=== PATIENT | female | born 1945 | race Caucasian/White ===

== ENCOUNTER 2021-11-12 17:31 | Inpatient (IN) | payer OTHER ==
[2021-11-12] MEDS ORDERED: ALBUTEROL SO4 2.5/IPRATROPIUM 0.5 INH SOL 3 ML VIAL.NEB. NEB ONE ×2 (18:11→18:26)
[2021-11-12 18:53] LABS: HEMATOCRIT 40.1 % (32.4-45.2); HEMOGLOBIN 14.1 G/dL (10.7-15.3); MCHC 35.1 g/dl (32.0-36.0); MEAN PLT VOLUME 8.4 fl (7.5-11.1); PLATELET COUNT 225.3 10^3/uL (134-434); RBC 4.41 10^6/uL (3.60-5.2); WHITE BLOOD COUNT 8.4 10^3/uL (4.0-10.8)
[2021-11-12 18:58] LABS: ALBUMIN 3.7 g/dl (3.4-5.0); BILIRUBIN,TOTAL 1.2 mg/dl (0.2-1); CALCIUM 9.5 mg/dl (8.5-10); CREATININE 0.9 mg/dl (0.55-1.3); TOT PROT 6.7 g/dl (6.4-8.2)
[2021-11-12] MEDS ORDERED: CEFTRIAXONE 1,000 MG in DEXTROSE 5%-WATER - 50 ML IVPB ONE (19:01)
[2021-11-12] MEDS ORDERED: AZITHROMYCIN IVPB 500 MG in DEXTROSE 5%-WATER - 250 ML IVPB ONE (19:02)
[2021-11-12] MEDS ORDERED: cefTRIAXone SODIUM 1 GM VIAL ONE ×2 (19:22)
[2021-11-12] MEDS ORDERED: AZITHROMYCIN 500 MG VIAL IVPB ONE (19:22)
[2021-11-13 03:25] VITALS: BMI 30.1
[2021-11-13] MEDS: LEVOTHYROXINE NA 100 MCG TABLET (FP) PO SCH (06:35)
[2021-11-13 07:35] LABS: HEMATOCRIT 37.4 % (32.4-45.2); HEMOGLOBIN 12.8 G/dL (10.7-15.3); MCHC 34.1 g/dl (32.0-36.0); MEAN CELL VOLUME 90.8 fl (80-96); MEAN PLT VOLUME 7.9 fl (7.5-11.1); PLATELET COUNT 182.5 10^3/uL (134-434); RBC 4.12 10^6/uL (3.60-5.2); RDW 13.8 % (11.6-15.6); WHITE BLOOD COUNT 7.1 10^3/uL (4.0-10.8)
[2021-11-13 07:40] LABS: CREATININE 0.8 mg/dl (0.55-1.3)
[2021-11-13] MEDS ORDERED: POTASSIUM CHLORIDE TABS 20 MEQ TABLET.ER (FP) PO ONE (08:30)
[2021-11-13] MEDS ORDERED: cefTRIAXone SODIUM 1 GM VIAL ONE (09:35)
[2021-11-13] MEDS ORDERED: DEXTROSE 5%-WATER - 50 ML IVPB ONE (09:36)
[2021-11-13] MEDS: AZITHROMYCIN IVPB 500 MG/250 ML BAG IVPB SCH (09:54)
[2021-11-13] MEDS: CEFTRIAXONE 1 GM in DEXTROSE 5%-WATER - 50 ML IVPB SCH (09:54)
[2021-11-13] MEDS ORDERED: amLODIPine BESYLATE 5 MG TABLET (FP) PO SCH (10:00)
[2021-11-13] MEDS ORDERED: HEPARIN NA (PORCINE) 5,000 UNITS/ML 1ML VIAL SQ SCH (10:00)
[2021-11-13] MEDS: amLODIPine BESYLATE 5 MG TABLET (FP) PO SCH (10:05)
[2021-11-13] MEDS: metoPROLOL SUCCINATE 25 MG TAB.SR.24H (FP) PO SCH (10:05)
[2021-11-13] MEDS: ACETAMINOPHEN 325 MG TABLET (FP) PO PRN (14:31)
[2021-11-13] MEDS: RIVAROXABAN 15 MG TABLET PO SCH (17:30)
[2021-11-13] MEDS: ATORVASTATIN CA 10 MG TABLET (FP) PO SCH (22:18)
[2021-11-14] MEDS: LEVOTHYROXINE NA 100 MCG TABLET (FP) PO SCH (06:27)
[2021-11-14] MEDS ORDERED: cefTRIAXone SODIUM 1 GM VIAL ONE (09:00)
[2021-11-14] MEDS ORDERED: DEXTROSE 5%-WATER - 50 ML IVPB ONE (09:01)
[2021-11-14] MEDS: amLODIPine BESYLATE 5 MG TABLET (FP) PO SCH (09:11)
[2021-11-14] MEDS: metoPROLOL SUCCINATE 25 MG TAB.SR.24H (FP) PO SCH (09:11)
[2021-11-14] MEDS: CEFTRIAXONE 1 GM in DEXTROSE 5%-WATER - 50 ML IVPB SCH (09:12)
[2021-11-14] MEDS: AZITHROMYCIN IVPB 500 MG/250 ML BAG IVPB SCH (09:12)
[2021-11-14] MEDS ORDERED: POTASSIUM CHLORIDE TABS 20 MEQ TABLET.ER (FP) PO ONE (10:17)
[2021-11-14] MEDS: METOPROLOL TARTRATE 5 MG/5 ML VIAL IVPUSH PRN ×2 (10:31→15:00)
[2021-11-14] MEDS ORDERED: METOPROLOL TARTRATE 25 MG TABLET (FP) PO ONE (12:30)
[2021-11-14] MEDS ORDERED: metoPROLOL SUCCINATE 25 MG TAB.SR.24H (FP) PO ONE (14:52)
[2021-11-14] MEDS ORDERED: metoPROLOL SUCCINATE 25 MG TAB.SR.24H (FP) PO SCH (15:00)
[2021-11-14] MEDS: RIVAROXABAN 15 MG TABLET PO SCH (17:39)
[2021-11-14] MEDS: ALBUTEROL SO4 2.5/IPRATROPIUM 0.5 INH SOL 3 ML VIAL.NEB. NEB PRN (20:42)
[2021-11-15 08:06] LABS: HEMATOCRIT 37.3 % (32.4-45.2); HEMOGLOBIN 13.1 G/dL (10.7-15.3); MCH 32.2 pg (25.7-33.7); MCHC 35.2 g/dl (32.0-36.0); MEAN CELL VOLUME 91.5 fl (80-96); PLATELET COUNT 165.3 10^3/uL (134-434); RBC 4.08 10^6/uL (3.60-5.2); RDW 14.2 % (11.6-15.6); WHITE BLOOD COUNT 9.7 10^3/uL (4.0-10.8)
[2021-11-15 08:15] LABS: ALBUMIN 3.2 g/dl (3.4-5.0); BILIRUBIN,TOTAL 1.2 mg/dl (0.2-1); CALCIUM 8.6 mg/dl (8.5-10); CREATININE 0.9 mg/dl (0.55-1.3); TOT PROT 6.2 g/dl (6.4-8.2)
[2021-11-15] MEDS ORDERED: cefTRIAXone SODIUM 1 GM VIAL ONE (09:29)
[2021-11-15] MEDS ORDERED: DEXTROSE 5%-WATER - 50 ML IVPB ONE (09:29)
[2021-11-15] MEDS: LEVOTHYROXINE NA 100 MCG TABLET (FP) PO SCH (09:39)
[2021-11-15] MEDS: amLODIPine BESYLATE 5 MG TABLET (FP) PO SCH (09:39)
[2021-11-15] MEDS: CEFTRIAXONE 1 GM in DEXTROSE 5%-WATER - 50 ML IVPB SCH (09:40)
[2021-11-15] MEDS: AZITHROMYCIN IVPB 500 MG/250 ML BAG IVPB SCH (09:40)
[2021-11-15] MEDS ORDERED: POTASSIUM CHLORIDE TABS 20 MEQ TABLET.ER (FP) PO ONE (09:57)
[2021-11-15] MEDS ORDERED: metoPROLOL SUCCINATE 25 MG TAB.SR.24H (FP) PO ONE (11:32)
[2021-11-15] MEDS: guaiFENesin 200 MG/10 ML 10 ML UNIT-DOSE CUPS PO PRN ×2 (12:34→21:51)
[2021-11-15] MEDS: ALBUTEROL SO4 2.5/IPRATROPIUM 0.5 INH SOL 3 ML VIAL.NEB. NEB PRN (12:37)
[2021-11-15] MEDS: RIVAROXABAN 15 MG TABLET PO SCH (18:23)
[2021-11-15] MEDS: ATORVASTATIN CA 10 MG TABLET (FP) PO SCH (21:50)
[2021-11-16] MEDS: ACETAMINOPHEN 325 MG TABLET (FP) PO PRN ×2 (00:53→10:36)
[2021-11-16] MEDS: LEVOTHYROXINE NA 100 MCG TABLET (FP) PO SCH (07:02)
[2021-11-16 08:31] LABS: HEMATOCRIT 36.6 % (32.4-45.2); HEMOGLOBIN 12.5 G/dL (10.7-15.3); MCH 31.6 pg (25.7-33.7); MCHC 34.2 g/dl (32.0-36.0); MEAN CELL VOLUME 92.4 fl (80-96); MEAN PLT VOLUME 8.6 fl (7.5-11.1); PLATELET COUNT 169.3 10^3/uL (134-434); RBC 3.96 10^6/uL (3.60-5.2)
[2021-11-16 09:00] LABS: ALBUMIN 2.9 g/dl (3.4-5.0); CALCIUM 8.9 mg/dl (8.5-10); CREATININE 0.8 mg/dl (0.55-1.3); MAGNESIUM 2.1 mg/dL (1.8-2.4); TOT PROT 5.9 g/dl (6.4-8.2)
[2021-11-16] MEDS ORDERED: metoPROLOL SUCCINATE 25 MG TAB.SR.24H (FP) PO SCH (10:00)
[2021-11-16] MEDS ORDERED: cefTRIAXone SODIUM 1 GM VIAL ONE (10:28)
[2021-11-16] MEDS ORDERED: DEXTROSE 5%-WATER - 50 ML IVPB ONE (10:28)
[2021-11-16] MEDS: CEFTRIAXONE 1 GM in DEXTROSE 5%-WATER - 50 ML IVPB SCH (10:35)
[2021-11-16] MEDS: AZITHROMYCIN IVPB 500 MG/250 ML BAG IVPB SCH (10:35)
[2021-11-16] MEDS: amLODIPine BESYLATE 5 MG TABLET (FP) PO SCH (10:36)
[2021-11-16] MEDS: predniSONE 20 MG TABLET (UD) PO SCH (10:38)
[2021-11-16] MEDS ORDERED: DOCUSATE SODIUM 100 MG CAPSULE (FP) PO PRN (10:43)
[2021-11-16] MEDS ORDERED: SENNOSIDES 8.6MG TABLET (FP) PO PRN (10:43)
[2021-11-16] MEDS: ALBUTEROL SO4 2.5/IPRATROPIUM 0.5 INH SOL 3 ML VIAL.NEB. NEB PRN (10:45)
[2021-11-16] MEDS: ALBUTEROL SO4 2.5/IPRATROPIUM 0.5 INH SOL 3 ML VIAL.NEB. NEB SCH ×4 (11:54→22:02)
[2021-11-16] MEDS: POLYETHYLENE GLYCOL (HEALTHYLAX) 3350 17 GM PACKET PO SCH (13:21)
[2021-11-16] MEDS: FAMOTIDINE 20 MG TABLET PO SCH (13:21)
[2021-11-16] MEDS: RIVAROXABAN 15 MG TABLET PO SCH (18:02)
[2021-11-16 19:31] LABS: EPITHELIAL CELLS RARE /hpf
[2021-11-16] MEDS: ATORVASTATIN CA 10 MG TABLET (FP) PO SCH (21:55)
[2021-11-16] MEDS: guaiFENesin 200 MG/10 ML 10 ML UNIT-DOSE CUPS PO PRN (22:34)
[2021-11-17] MEDS: guaiFENesin 200 MG/10 ML 10 ML UNIT-DOSE CUPS PO PRN (06:53)
[2021-11-17] MEDS: LEVOTHYROXINE NA 100 MCG TABLET (FP) PO SCH (06:53)
[2021-11-17] MEDS: ALBUTEROL SO4 2.5/IPRATROPIUM 0.5 INH SOL 3 ML VIAL.NEB. NEB SCH ×4 (07:16→21:35)
[2021-11-17] MEDS ORDERED: DEXTROSE 5%-WATER - 50 ML IVPB ONE (09:36)
[2021-11-17] MEDS ORDERED: cefTRIAXone SODIUM 1 GM VIAL ONE (09:36)
[2021-11-17] MEDS: FAMOTIDINE 20 MG TABLET PO SCH (09:45)
[2021-11-17] MEDS: predniSONE 20 MG TABLET (UD) PO SCH (09:45)
[2021-11-17] MEDS: amLODIPine BESYLATE 5 MG TABLET (FP) PO SCH (09:45)
[2021-11-17] MEDS: AZITHROMYCIN IVPB 500 MG/250 ML BAG IVPB SCH (09:46)
[2021-11-17] MEDS: CEFTRIAXONE 1 GM in DEXTROSE 5%-WATER - 50 ML IVPB SCH (09:46)
[2021-11-17] MEDS: POLYETHYLENE GLYCOL (HEALTHYLAX) 3350 17 GM PACKET PO SCH (09:46)
[2021-11-17 10:02] LABS: HEMATOCRIT 36.2 % (32.4-45.2); HEMOGLOBIN 12.2 G/dL (10.7-15.3); MCH 30.8 pg (25.7-33.7); MCHC 33.6 g/dl (32.0-36.0); MEAN CELL VOLUME 91.8 fl (80-96); MEAN PLT VOLUME 8.8 fl (7.5-11.1); PLATELET COUNT 213.7 10^3/uL (134-434); RBC 3.94 10^6/uL (3.60-5.2); RDW 14.3 % (11.6-15.6); WHITE BLOOD COUNT 11.9 10^3/uL (4.0-10.8)
[2021-11-17 10:30] LABS: ALBUMIN 3.1 g/dl (3.4-5.0); BILIRUBIN,TOTAL 0.7 mg/dl (0.2-1); CALCIUM 8.8 mg/dl (8.5-10); CREATININE 0.8 mg/dl (0.55-1.3); MAGNESIUM 1.9 mg/dL (1.8-2.4)
[2021-11-17] MEDS: guaiFENesin/CODEINE 10 ML UNIT-DOSE CUPS PO PRN (18:34)
[2021-11-17] MEDS: RIVAROXABAN 20 MG TABLET PO SCH (18:34)
[2021-11-17] MEDS: ATORVASTATIN CA 10 MG TABLET (FP) PO SCH ×2 (19:15→21:36)
[2021-11-17] MEDS: guaiFENesin/CODEINE 10 ML UNIT-DOSE CUPS PO SCH (21:34)
[2021-11-17] MEDS: metroNIDAZOLE 250 MG TABLET PO SCH (21:35)
[2021-11-17] MEDS ORDERED: traZODone HCL 50 MG TABLET (FP) PO SCH (22:00)
[2021-11-18] MEDS: guaiFENesin/CODEINE 10 ML UNIT-DOSE CUPS PO PRN ×2 (01:54→08:16)
[2021-11-18] MEDS: LEVOTHYROXINE NA 100 MCG TABLET (FP) PO SCH (06:38)
[2021-11-18] MEDS: metroNIDAZOLE 250 MG TABLET PO SCH (06:39)
[2021-11-18] MEDS: LEVALBUTEROL HCL 0.63 MG/3 ML VIAL.NEB. IH PRN (08:21)
[2021-11-18] MEDS ORDERED: methylPREDNISolone NA SUCC 125 MG/2 ML VIAL IVPUSH ONE (08:55)
[2021-11-18] MEDS ORDERED: DEXTROSE 5%-WATER - 50 ML IVPB ONE ×4 (09:10→23:47)
[2021-11-18] MEDS ORDERED: cefTRIAXone SODIUM 1 GM VIAL ONE (09:10)
[2021-11-18] MEDS: amLODIPine BESYLATE 5 MG TABLET (FP) PO SCH (09:25)
[2021-11-18] MEDS: predniSONE 20 MG TABLET (UD) PO SCH (09:25)
[2021-11-18] MEDS: FAMOTIDINE 20 MG TABLET PO SCH (09:25)
[2021-11-18] MEDS: POLYETHYLENE GLYCOL (HEALTHYLAX) 3350 17 GM PACKET PO SCH (09:26)
[2021-11-18] MEDS: CEFTRIAXONE 1 GM in DEXTROSE 5%-WATER - 50 ML IVPB SCH (09:26)
[2021-11-18 09:39] LABS: MCH 31.3 pg (25.7-33.7); MCHC 33.4 g/dl (32.0-36.0); MEAN CELL VOLUME 93.7 fl (80-96); MEAN PLT VOLUME 8.5 fl (7.5-11.1); PLATELET COUNT 221.3 10^3/uL (134-434); RBC 3.84 10^6/uL (3.60-5.2); RDW 14.8 % (11.6-15.6)
[2021-11-18] MEDS ORDERED: AZITHROMYCIN IVPB 500 MG/250 ML BAG IVPB SCH (10:00)
[2021-11-18 10:30] LABS: CREATININE 0.9 mg/dL (0.55-1.3)
[2021-11-18 10:32] LABS: ALBUMIN 2.7 g/dl (3.4-5.0); BLOOD UREA NITROGEN 16.3 mg/dL (7-18)
[2021-11-18 10:33] LABS: BILIRUBIN,TOTAL 0.5 mg/dL (0.2-1)
[2021-11-18 10:34] LABS: CALCIUM 8.5 mg/dL (8.5-10.1)
[2021-11-18 10:35] LABS: MAGNESIUM 2.3 mg/dL (1.8-2.4); PHOSPHOROUS 3.6 mg/dL (2.5-4.9)
[2021-11-18] MEDS ORDERED: PIPERACILLIN/TAZOB 3.375 GM 3.375 GM in DEXTROSE 5%-WATER - 50 ML IVPB SCH (12:15)
[2021-11-18] MEDS ORDERED: PIPERACILLIN/TAZOBACTAM 3.375 GM VIAL IVPB ONE ×3 (12:57→23:46)
[2021-11-18] MEDS: PIPERACILLIN/TAZOB 3.375 GM 3.375 GM in DEXTROSE 5%-WATER - 50 ML IVPB SCH ×2 (13:00→17:16)
[2021-11-18] MEDS: METOPROLOL TARTRATE 5 MG/5 ML VIAL IVPUSH PRN (14:12)
[2021-11-18 16:02] LABS: PLATELET ESTIMATE ADEQUATE
[2021-11-18] MEDS: RIVAROXABAN 20 MG TABLET PO SCH (17:17)
[2021-11-18] MEDS: ATORVASTATIN CA 10 MG TABLET (FP) PO SCH (22:03)
[2021-11-18] MEDS: guaiFENesin/CODEINE 10 ML UNIT-DOSE CUPS PO SCH (22:03)
[2021-11-19] MEDS: PIPERACILLIN/TAZOB 3.375 GM 3.375 GM in DEXTROSE 5%-WATER - 50 ML IVPB SCH ×3 (01:35→17:23)
[2021-11-19] MEDS: guaiFENesin/CODEINE 10 ML UNIT-DOSE CUPS PO PRN ×2 (05:00→23:49)
[2021-11-19] MEDS: LEVOTHYROXINE NA 100 MCG TABLET (FP) PO SCH (06:18)
[2021-11-19] MEDS ORDERED: PIPERACILLIN/TAZOBACTAM 3.375 GM VIAL IVPB ONE ×2 (09:09→17:00)
[2021-11-19] MEDS ORDERED: DEXTROSE 5%-WATER - 50 ML IVPB ONE ×2 (09:10→17:01)
[2021-11-19] MEDS: FAMOTIDINE 20 MG TABLET PO SCH (09:31)
[2021-11-19] MEDS: dilTIAZem HCL 30 MG TABLET PO SCH ×2 (09:31→21:12)
[2021-11-19] MEDS: predniSONE 20 MG TABLET (UD) PO SCH (09:31)
[2021-11-19] MEDS: POLYETHYLENE GLYCOL (HEALTHYLAX) 3350 17 GM PACKET PO SCH (10:18)
[2021-11-19] MEDS: RIVAROXABAN 20 MG TABLET PO SCH (17:24)
[2021-11-19] MEDS: ATORVASTATIN CA 10 MG TABLET (FP) PO SCH (21:12)
[2021-11-19] MEDS: guaiFENesin/CODEINE 10 ML UNIT-DOSE CUPS PO SCH (21:12)
[2021-11-20] MEDS ORDERED: DEXTROSE 5%-WATER - 50 ML IVPB ONE ×2 (01:33→09:29)
[2021-11-20] MEDS ORDERED: PIPERACILLIN/TAZOBACTAM 3.375 GM VIAL IVPB ONE ×2 (01:33→09:29)
[2021-11-20] MEDS: PIPERACILLIN/TAZOB 3.375 GM 3.375 GM in DEXTROSE 5%-WATER - 50 ML IVPB SCH ×2 (01:58→09:47)
[2021-11-20] MEDS: LEVALBUTEROL HCL 0.63 MG/3 ML VIAL.NEB. IH PRN (03:13)
[2021-11-20] MEDS: LEVOTHYROXINE NA 100 MCG TABLET (FP) PO SCH (06:20)
[2021-11-20 09:36] LABS: ALBUMIN 2.6 g/dl (3.4-5.0); BILIRUBIN,TOTAL 0.5 mg/dl (0.2-1); CALCIUM 8.5 mg/dl (8.5-10); CREATININE 0.9 mg/dl (0.55-1.3); TOT PROT 5.3 g/dl (6.4-8.2)
[2021-11-20 09:41] LABS: BASO % 0.2 % (0-2.0); EOS % 0.6 % (0-4.5); HEMATOCRIT 35.2 % (32.4-45.2); HEMOGLOBIN 11.7 GM/dL (10.7-15.3); LYMPH % 14.2 % (8-40); MCH 30.4 pg (25.7-33.7); MCHC 33.2 g/dl (32.0-36.0); MEAN CELL VOLUME 91.8 fl (80-96); MEAN PLT VOLUME 8.3 fl (7.5-11.1); PLATELET COUNT 280 10^3/uL (134-434); RBC 3.84 M/mm3 (3.60-5.2); RDW 13.6 % (11.6-15.6); WHITE BLOOD COUNT 10.6 K/mm3 (4.0-10.0)
[2021-11-20] MEDS: dilTIAZem HCL 30 MG TABLET PO SCH ×2 (09:46→21:30)
[2021-11-20] MEDS: predniSONE 20 MG TABLET (UD) PO SCH (09:47)
[2021-11-20] MEDS: FAMOTIDINE 20 MG TABLET PO SCH (09:47)
[2021-11-20] MEDS: POLYETHYLENE GLYCOL (HEALTHYLAX) 3350 17 GM PACKET PO SCH (11:26)
[2021-11-20] MEDS: methylPREDNISolone NA SUCC 40 MG/1 ML VIAL IVPUSH SCH ×2 (11:33→17:42)
[2021-11-20] MEDS: RIVAROXABAN 20 MG TABLET PO SCH (17:42)
[2021-11-20] MEDS: ATORVASTATIN CA 10 MG TABLET (FP) PO SCH (21:30)
[2021-11-20] MEDS: guaiFENesin/CODEINE 10 ML UNIT-DOSE CUPS PO SCH (21:31)
[2021-11-21] MEDS: methylPREDNISolone NA SUCC 40 MG/1 ML VIAL IVPUSH SCH ×3 (01:31→17:15)
[2021-11-21] MEDS: LEVOTHYROXINE NA 100 MCG TABLET (FP) PO SCH (06:12)
[2021-11-21 08:38] LABS: N-TERMINAL BNP 5833.2 pg/ml (5-450)
[2021-11-21] MEDS: FAMOTIDINE 20 MG TABLET PO SCH (09:29)
[2021-11-21] MEDS: POLYETHYLENE GLYCOL (HEALTHYLAX) 3350 17 GM PACKET PO SCH (09:29)
[2021-11-21] MEDS: dilTIAZem HCL 30 MG TABLET PO SCH ×2 (09:29→21:38)
[2021-11-21] MEDS: RIVAROXABAN 20 MG TABLET PO SCH (17:15)
[2021-11-21] MEDS: ATORVASTATIN CA 10 MG TABLET (FP) PO SCH (21:38)
[2021-11-21] MEDS: guaiFENesin/CODEINE 10 ML UNIT-DOSE CUPS PO SCH (21:38)
[2021-11-22] MEDS: methylPREDNISolone NA SUCC 40 MG/1 ML VIAL IVPUSH SCH ×3 (01:32→17:39)
[2021-11-22] MEDS: LEVOTHYROXINE NA 100 MCG TABLET (FP) PO SCH (06:36)
[2021-11-22 09:13] LABS: HEMATOCRIT 40.2 % (32.4-45.2); HEMOGLOBIN 13.5 G/dL (10.7-15.3); MCHC 33.6 g/dl (32.0-36.0); MEAN CELL VOLUME 92.5 fl (80-96); MEAN PLT VOLUME 7.4 fl (7.5-11.1); PLATELET COUNT 409.4 10^3/uL (134-434); RBC 4.35 10^6/uL (3.60-5.2); RDW 14.5 % (11.6-15.6); WHITE BLOOD COUNT 15.5 10^3/uL (4.0-10.8)
[2021-11-22 09:21] LABS: ALBUMIN 2.9 g/dl (3.4-5.0); BILIRUBIN,TOTAL 0.5 mg/dl (0.2-1); CALCIUM 8.9 mg/dl (8.5-10); CREATININE 0.9 mg/dl (0.55-1.3)
[2021-11-22] MEDS: dilTIAZem HCL 60 MG TABLET PO SCH ×2 (09:39→21:14)
[2021-11-22] MEDS: POLYETHYLENE GLYCOL (HEALTHYLAX) 3350 17 GM PACKET PO SCH (09:39)
[2021-11-22] MEDS: FAMOTIDINE 20 MG TABLET PO SCH ×2 (09:39→21:14)
[2021-11-22] MEDS: RIVAROXABAN 20 MG TABLET PO SCH (17:39)
[2021-11-22] MEDS: guaiFENesin/CODEINE 10 ML UNIT-DOSE CUPS PO SCH (21:14)
[2021-11-22] MEDS: ATORVASTATIN CA 10 MG TABLET (FP) PO SCH (21:14)
[2021-11-23] MEDS: methylPREDNISolone NA SUCC 40 MG/1 ML VIAL IVPUSH SCH ×3 (02:00→17:31)
[2021-11-23] MEDS: FAMOTIDINE 20 MG TABLET PO SCH ×2 (09:55→21:08)
[2021-11-23] MEDS: dilTIAZem HCL 60 MG TABLET PO SCH ×2 (09:55→21:08)
[2021-11-23] MEDS: POLYETHYLENE GLYCOL (HEALTHYLAX) 3350 17 GM PACKET PO SCH (09:55)
[2021-11-23] MEDS: RIVAROXABAN 20 MG TABLET PO SCH (17:31)
[2021-11-23] MEDS: ATORVASTATIN CA 10 MG TABLET (FP) PO SCH (21:08)
[2021-11-23] MEDS: guaiFENesin/CODEINE 10 ML UNIT-DOSE CUPS PO SCH (21:08)
[2021-11-24] MEDS: methylPREDNISolone NA SUCC 40 MG/1 ML VIAL IVPUSH SCH ×3 (02:00→17:18)
[2021-11-24] MEDS: dilTIAZem HCL 60 MG TABLET PO SCH (09:41)
[2021-11-24] MEDS: FAMOTIDINE 20 MG TABLET PO SCH ×2 (09:41→21:07)
[2021-11-24] MEDS: POLYETHYLENE GLYCOL (HEALTHYLAX) 3350 17 GM PACKET PO SCH (09:42)
[2021-11-24] MEDS ORDERED: dilTIAZem HCL 60 MG TABLET PO SCH (15:34)
[2021-11-24] MEDS: RIVAROXABAN 20 MG TABLET PO SCH (17:18)
[2021-11-24] MEDS: ATORVASTATIN CA 10 MG TABLET (FP) PO SCH (21:07)
[2021-11-25] MEDS: methylPREDNISolone NA SUCC 40 MG/1 ML VIAL IVPUSH SCH ×3 (02:56→17:30)
[2021-11-25] MEDS: dilTIAZem HCL 50 MG/10 ML - 10 ML VIAL IVPUSH PRN ×3 (07:50→17:00)
[2021-11-25] MEDS: ATORVASTATIN CA 10 MG TABLET (FP) PO SCH ×2 (07:50→21:31)
[2021-11-25 09:36] LABS: HEMATOCRIT 35.3 % (32.4-45.2); HEMOGLOBIN 11.9 GM/dL (10.7-15.3); MCH 30.6 pg (25.7-33.7); MCHC 33.8 g/dl (32.0-36.0); MEAN CELL VOLUME 90.8 fl (80-96); MEAN PLT VOLUME 7.1 fl (7.5-11.1); PLATELET COUNT 299 10^3/uL (134-434); RBC 3.89 M/mm3 (3.60-5.2); RDW 13.7 % (11.6-15.6)
[2021-11-25] MEDS: POLYETHYLENE GLYCOL (HEALTHYLAX) 3350 17 GM PACKET PO SCH (10:00)
[2021-11-25] MEDS: FAMOTIDINE 20 MG TABLET PO SCH ×2 (10:00→21:31)
[2021-11-25 10:21] LABS: ANISOCYTOSIS 1+; MACROCYTOSIS 0
[2021-11-25] MEDS: RIVAROXABAN 20 MG TABLET PO SCH (18:29)
[2021-11-26] MEDS: methylPREDNISolone NA SUCC 40 MG/1 ML VIAL IVPUSH SCH ×3 (02:21→19:48)
[2021-11-26 08:52] LABS: BILIRUBIN,TOTAL 0.6 mg/dl (0.2-1); CALCIUM 8.5 mg/dl (8.5-10); CREATININE 0.8 mg/dl (0.55-1.3); MAGNESIUM 2.2 mg/dL (1.8-2.4); PHOSPHOROUS 3.5 mg/dl (2.5-4.9); TOT PROT 5.4 g/dl (6.4-8.2)
[2021-11-26] MEDS: POLYETHYLENE GLYCOL (HEALTHYLAX) 3350 17 GM PACKET PO SCH (09:18)
[2021-11-26] MEDS: FAMOTIDINE 20 MG TABLET PO SCH ×2 (09:18→21:47)
[2021-11-26 11:45] LABS: HEMATOCRIT 41.6 % (32.4-45.2); HEMOGLOBIN 13.7 GM/dL (10.7-15.3); MCH 30.2 pg (25.7-33.7); MEAN CELL VOLUME 91.6 fl (80-96); MEAN PLT VOLUME 7.4 fl (7.5-11.1); PLATELET COUNT 413 10^3/uL (134-434); RBC 4.54 M/mm3 (3.60-5.2); RDW 13.7 % (11.6-15.6); WHITE BLOOD COUNT 14.1 K/mm3 (4.0-10.0)
[2021-11-26 12:54] LABS: ANISOCYTOSIS 0; HELMET CELLS 0; HOWELL-JOLLY BODIES 0; MACROCYTOSIS 0; OVALOCYTE 0; ROULEAU 0; SICKELED CELLS 0; TARGET CELLS 0; TEAR DROP CELLS 0; TOXIC GRANULATION 0
[2021-11-26] MEDS: RIVAROXABAN 20 MG TABLET PO SCH (19:48)
[2021-11-26] MEDS: ATORVASTATIN CA 10 MG TABLET (FP) PO SCH (21:47)
[2021-11-27] MEDS ORDERED: DOCUSATE SODIUM 100 MG CAPSULE (FP) PO PRN (00:41)
[2021-11-27] MEDS ORDERED: SENNOSIDES 8.6MG TABLET (FP) PO PRN (00:41)
[2021-11-27] MEDS ORDERED: dilTIAZem HCL 50 MG/10 ML - 10 ML VIAL IVPUSH PRN (00:41)
[2021-11-27] MEDS ORDERED: ACETAMINOPHEN 325 MG TABLET (FP) PO PRN (00:41)
[2021-11-27] MEDS: methylPREDNISolone NA SUCC 40 MG/1 ML VIAL IVPUSH SCH ×3 (02:30→18:07)
[2021-11-27] MEDS: FAMOTIDINE 20 MG TABLET PO SCH ×2 (09:41→21:53)
[2021-11-27] MEDS: POLYETHYLENE GLYCOL (HEALTHYLAX) 3350 17 GM PACKET PO SCH (09:42)
[2021-11-27 11:45] LABS: HEMATOCRIT 41.2 % (32.4-45.2); HEMOGLOBIN 13.4 GM/dL (10.7-15.3); MCH 29.5 pg (25.7-33.7); MCHC 32.6 g/dl (32.0-36.0); MEAN CELL VOLUME 90.5 fl (80-96); PLATELET COUNT 386 10^3/uL (134-434); RBC 4.55 M/mm3 (3.60-5.2); RDW 13.8 % (11.6-15.6); WHITE BLOOD COUNT 14.7 K/mm3 (4.0-10.0)
[2021-11-27 12:27] LABS: ANISOCYTOSIS 1+; MACROCYTOSIS 0
[2021-11-27 12:29] LABS: CALCIUM 8.1 mg/dL (8.5-10.1)
[2021-11-27 12:30] LABS: ALBUMIN 2.8 g/dl (3.4-5.0); BLOOD UREA NITROGEN 31.2 mg/dL (7-18); MAGNESIUM 2.5 mg/dL (1.8-2.4)
[2021-11-27 12:33] LABS: CREATININE 0.8 mg/dL (0.55-1.3); PHOSPHOROUS 3.6 mg/dL (2.5-4.9)
[2021-11-27 12:34] LABS: BILIRUBIN,TOTAL 0.5 mg/dL (0.2-1); TOT PROT 5.5 g/dl (6.4-8.2)
[2021-11-27] MEDS: RIVAROXABAN 20 MG TABLET PO SCH (18:07)
[2021-11-27] MEDS: ATORVASTATIN CA 10 MG TABLET (FP) PO SCH (21:53)
[2021-11-28] MEDS: methylPREDNISolone NA SUCC 40 MG/1 ML VIAL IVPUSH SCH ×2 (03:20→09:30)
[2021-11-28 07:09] LABS: HEMATOCRIT 39.4 % (32.4-45.2); MCHC 32.9 g/dl (32.0-36.0); MEAN CELL VOLUME 91.1 fl (80-96); MEAN PLT VOLUME 7.5 fl (7.5-11.1); PLATELET COUNT 289 10^3/uL (134-434); RBC 4.33 M/mm3 (3.60-5.2); RDW 13.9 % (11.6-15.6); WHITE BLOOD COUNT 11.6 K/mm3 (4.0-10.0)
[2021-11-28 07:40] LABS: ALBUMIN 2.5 g/dl (3.4-5.0); BLOOD UREA NITROGEN 31.3 mg/dL (7-18); CALCIUM 7.9 mg/dL (8.5-10.1)
[2021-11-28 07:41] LABS: MAGNESIUM 2.6 mg/dL (1.8-2.4)
[2021-11-28 07:43] LABS: CREATININE 0.8 mg/dL (0.55-1.3); PHOSPHOROUS 3.5 mg/dL (2.5-4.9)
[2021-11-28 07:44] LABS: BILIRUBIN,TOTAL 0.5 mg/dL (0.2-1)
[2021-11-28 09:07] LABS: ANISOCYTOSIS 1+; MACROCYTOSIS 0
[2021-11-28] MEDS: FAMOTIDINE 20 MG TABLET PO SCH ×2 (09:30→21:28)
[2021-11-28] MEDS: POLYETHYLENE GLYCOL (HEALTHYLAX) 3350 17 GM PACKET PO SCH (09:30)
[2021-11-28] MEDS: predniSONE 20 MG TABLET (UD) PO SCH (13:48)
[2021-11-28] MEDS: RIVAROXABAN 20 MG TABLET PO SCH (17:29)
[2021-11-28] MEDS: ATORVASTATIN CA 10 MG TABLET (FP) PO SCH (21:28)
[2021-11-29 01:42] VITALS: TEMP 98.2
[2021-11-29] MEDS ORDERED: ATOVAQUONE 750 MG/5 ML (UNIT-DOSE PACKAGING) PO SCH (08:00)
[2021-11-29 08:16] LABS: HEMATOCRIT 41.3 % (32.4-45.2); HEMOGLOBIN 13.4 GM/dL (10.7-15.3); LYMPH % 6.2 % (8-40); MCH 29.7 pg (25.7-33.7); MCHC 32.6 g/dl (32.0-36.0); MEAN CELL VOLUME 91.2 fl (80-96); MEAN PLT VOLUME 7.4 fl (7.5-11.1); MONO % 8.9 % (3.8-10.2); NEUT % 84.9 % (42.8-82.8); PLATELET COUNT 280 10^3/uL (134-434); RBC 4.52 M/mm3 (3.60-5.2); RDW 13.9 % (11.6-15.6); WHITE BLOOD COUNT 12.8 K/mm3 (4.0-10.0)
[2021-11-29 08:39] LABS: CALCIUM 8.2 mg/dL (8.5-10.1)
[2021-11-29 08:40] LABS: ALBUMIN 2.6 g/dl (3.4-5.0); BLOOD UREA NITROGEN 33.3 mg/dL (7-18); MAGNESIUM 2.7 mg/dL (1.8-2.4)
[2021-11-29 08:43] LABS: CREATININE 0.9 mg/dL (0.55-1.3); PHOSPHOROUS 3.8 mg/dL (2.5-4.9)
[2021-11-29 08:44] LABS: BILIRUBIN,TOTAL 0.6 mg/dL (0.2-1); TOT PROT 5.1 g/dl (6.4-8.2)
[2021-11-29] MEDS: POLYETHYLENE GLYCOL (HEALTHYLAX) 3350 17 GM PACKET PO SCH (10:10)
[2021-11-29] MEDS: FAMOTIDINE 20 MG TABLET PO SCH (10:10)
[2021-11-29] MEDS: predniSONE 20 MG TABLET (UD) PO SCH (10:10)
[2021-11-29 15:14] VITALS: BP 142/86; PULSE 89; RESP 20
== END 2021-11-29 19:41 | disposition home or self-care (01) | DRG 142 ==
LOC: FER 17:31 → FM/S 20:41 → OBSVTOIN 11-14 08:52 → J4W 11-26 11:28
PROVIDERS: ADMIT Internal Medicine
DX: J84.116 Cryptogenic organizing pneumonia (principal); I48.91 Unspecified atrial fibrillation; N17.9 Acute kidney failure, unspecified; I24.8 Other forms of acute ischemic heart disease; I48.0 Paroxysmal atrial fibrillation; E03.9 Hypothyroidism, unspecified; E78.00 Pure hypercholesterolemia, unspecified; I25.10 Atherosclerotic heart disease of native coronary artery without angina pectoris; E78.5 Hyperlipidemia, unspecified; R00.0 Tachycardia, unspecified; J45.909 Unspecified asthma, uncomplicated; R07.89 Other chest pain; I11.0 Hypertensive heart disease with heart failure; I50.9 Heart failure, unspecified; I45.10 Unspecified right bundle-branch block; Q25.79 Other congenital malformations of pulmonary artery; I25.2 Old myocardial infarction; Z85.3 Personal history of malignant neoplasm of breast; Z85.038 Personal history of other malignant neoplasm of large intestine; Z86.73 Personal history of transient ischemic attack (TIA), and cerebral infarction without residual deficits
CPT/HCPCS: 0241U-QW; 36415; 71045-TC-FY; 71046-TC-FY; 71250-TC; 76705-TC; 80048; 80053; 81003; 81015; 82248; 82550; 82728; 83615; 83735; 83880; 84100; 84439; 84443; 84484; 85025; 85027; 85379; 85651; 86140; 86480; 87040; 87070; 87086; 87205; 87899; 93005; 93306-TC; 94640; 94761; 97116-GP; 97162-GP; 99285-25; C9803-CS; G0378; U0003; U0005